=== PATIENT | male | born 2000 | race Caucasian/White ===

== ENCOUNTER 2019-10-10 14:14 | Outpatient (CLI) | payer OTHER, SELFPAY ==
--- NOTE | ~2019-10-10 | XR_ITS ---
EXAMINATION: XR knee LT 3V DATE: 10/10/2019 14:39 INDICATION: Left knee pain. TECHNIQUE: 3 views of left knee were obtained. COMPARISON: Left knee radiographs 09/27/2012 FINDINGS: Bone alignment is normal. No fracture. Joint spaces are well maintained. There is no knee j oint effusion. IMPRESSION: 1. Normal left knee. Reviewed, dictated and finalized at location A. IMPRESSION: 1. Normal left knee.
== END 2019-10-10 14:15 | disposition home or self-care (01) ==
PROVIDERS: PCP Family Medicine; Visit Provider Family Medicine
DX: M25.562 Pain in left knee (principal)
CPT/HCPCS: 73562

== ENCOUNTER 2020-09-22 00:07 | Emergency (ER) | payer BC, MEDICAID, SELFPAY ==
[2020-09-22 00:20] VITALS: BP 120/88; PULSE 90; RESP 20; TEMP 38; O2SAT 97
--- NOTE | 2020-09-22 01:06 | ED.URI ---
HPI - URI/Sore Throat General Chief Complaint: Upper Respiratory Infection Stated Complaint: PAIN Time Seen by Provider: 09/22/20 00:22 Source: patient and RN notes reviewed Mode of arrival: ambulatory Limitations: no limitations History of Present Illness MD elicited complaint: fever, sore throat and nasal congestion Onset (ago): day(s) (8) Consistency: constant Severity: moderate Pain scale (0-10): 7 Able to tolerate fluids by mouth: Yes Exacerbating factors: swallowing Relieving factors: nothing Associated symptoms: fever, voice changes, headache, sore throat, nausea and vomiting Treatments prior to arrival: none Related Data Allergies Allergy/AdvReac Type Severity Reaction Status Date / Time No Known Allergies Allergy Verified 09/22/20 00:23 Review of Systems Review of Systems: All systems reviewed & are unremarkable except as noted in HPI and below Constitutional: Constitutional: Reports as per HPI and Reports no additional constitutional complaints Eyes: Eyes: Reports as per HPI and Reports no additional eye complaints ENT: Reports system reviewed and no additional complaints, except as documented and Reports as per HPI Cardiovascular: Cardiovascular: Reports as per HPI and Reports no additional cardiovascular complaints Respiratory: Respiratory: Reports as per HPI and Reports no additional respiratory complaints Gastrointestinal: Gastrointestinal: Reports as per HPI, Reports no additional gastrointestinal complaints, Reports abdominal pain, Reports nausea and Reports vomiting Genitourinary: Genitourinary: Reports no additional male genitourinary complaints and Reports as per HPI Musculoskeletal: Musculoskeletal: Reports no additional musculoskeletal complaints and Reports as per HPI Integumentary/Breasts: Skin/Breast: Reports system reviewed and no additional complaints, except as docu and Reports as per HPI Neurologic: Reports system reviewed and no additional complaints, except as documented and Reports as per HPI Psychiatric: Psychiatric: Reports no additional psychiatric complaints and Reports as per HPI Endocrine: Endocrine: Reports no additional endocrine complaints and Reports as per HPI Hematologic/Lymphatic: Hematologic/Lymphatic: Reports no additional hematologic/lymphatic complaints and Reports as per HPI Allergic/Immunologic: Allergic/Immunologic: Reports no additional allergic/immunologic complaints and Reports as per HPI Exam Const: General: no acute distress, alert and ill appearing Nutritional Appearance: well nourished Orientation/consciousness: patient oriented x3 HENMT: Ears: external ears normal and TM's normal bilaterally General nose exam: Normal external nose present and Normal nares present Mouth: Yes lip normal and Yes moist mucous membranes Teeth and gingiva: dentition normal Other: bilateral erythematous tonsillar hypertrophy with no acute exudates and no stridor. Eyes: Conjunctivae: conjunctivae normal Pupils: Equal, round and reactive pupils present EOM: EOMs intact bilaterally Neck: Neck: normal visual inspection and no lymphadenopathy Chest: Chest palpation & inspection: normal inspection of the chest Resp: Effort & Inspection: normal respiratory effort Auscultation: clear to auscultation bilaterally Cardio: Rate: regular rate Rhythm: regular rhythm GI: GI Palp: Yes Soft to palpation Percussion: Yes normal to percussion Auscultation: normal bowel sounds : General: Yes bladder normal to palpation and Yes no CVA tenderness Male General Exam: Yes normal external exam Testes: Testes normal Back/Spine/Pelvis: Back: no CVA tenderness Skin: General skin exam: normal color Rashes: no rashes Neuro: General: patient oriented x3, moves all extremities, no focal motor deficits and CN's II-XI intact bilaterally Cranial nerves: Yes Nystagmus not present Extrem: General: normal to inspection and no pedal edema Psych: Appearance: grossly normal and well kempt
[2020-09-22 01:10] VITALS: TEMP 38
[2020-09-22] MEDS: ONDANSETRON INJ 4 MG/2 ML VIAL IV PUSH (01:10)
[2020-09-22] MEDS: ACETAMINOPHEN 160 MG/5 ML ORAL SYRINGE 640 MG PO (01:10)
[2020-09-22] MEDS: MORPHINE SULFATE (*CRX) 2 MG/ML INJ IV PUSH (01:10)
[2020-09-22] MEDS: SODIUM CHLORIDE 0.9% IV 1,000 ML 999 ML IV CONT (01:10)
[2020-09-22] MEDS: PANTOPRAZOLE SODIUM IV 40 MG VIAL IV PUSH (01:10)
[2020-09-22 02:00] VITALS: BP 119/80; PULSE 88; RESP 20; TEMP 37.2; O2SAT 95
[2020-09-22 02:42] VITALS: BP 129/79; PULSE 89; RESP 19; TEMP 37.2; O2SAT 97
== END 2020-09-22 03:06 | disposition home or self-care (01) ==
PROVIDERS: Emergency Provider Emergency Medicine; PCP Family Medicine
DX: J02.9 Acute pharyngitis, unspecified (principal)
CPT/HCPCS: 87880; 96365; 96375; 99283; 99284; A9270; C9113; J0696; J2270; J2405; J7030

== ENCOUNTER 2020-09-25 14:44 | Outpatient (CLI) | payer BC, SELFPAY ==
[2020-09-25 15:59] LABS: SARS-CoV-2 RNA PCR Negative (Negative)
== END 2020-09-25 14:45 | disposition home or self-care (01) ==
LOC: CHSLAB 14:46
PROVIDERS: PCP Family Medicine; Visit Provider Family Medicine
DX: R50.9 Fever, unspecified (principal)
CPT/HCPCS: C9803; U0003; U0005

== ENCOUNTER 2022-03-10 15:47 | Outpatient (CLI) | payer OTHER, SELFPAY ==
--- NOTE | ~2022-03-10 | XR_ITS ---
EXAMINATION: XR chest 2V 03/10/2022 16:06 INDICATION: Left-sided chest pain PROCEDURE: 2 view chest COMPARISON: 07/18/2010 FINDINGS: The lungs are clear. The cardiomediastinal silhouette is within normal limits. There are no pleural effusions. There is no pneumothorax suspected. IMPRESSION: 1: NO ACUTE CARDIOPULMONARY DISEASE. Reviewed, dictated and finalized at location A. [employer] DIRECTOR
== END 2022-03-10 15:48 | disposition home or self-care (01) ==
LOC: CHSIMG 15:51
PROVIDERS: PCP Family Medicine; Visit Provider Family Medicine
DX: R07.89 Other chest pain (principal)
CPT/HCPCS: 71046

== ENCOUNTER 2022-03-11 09:47 | Outpatient (CLI) | payer OTHER, SELFPAY ==
[2022-03-11 11:01] LABS: Cholesterol 174 mg/dL (0-200); HDL Direct 61 mg/dL (40-60); LDL Cholesterol Calculated 105 mg/dL (<130); Triglycerides 42 mg/dL (0-150)
== END 2022-03-11 09:48 | disposition home or self-care (01) ==
LOC: CHSLAB 09:49
PROVIDERS: PCP Family Medicine; Visit Provider Family Medicine
DX: Z13.220 Encounter for screening for lipoid disorders (principal)
CPT/HCPCS: 36415; 80061